=== PATIENT | male | born 1945 | race Caucasian/White ===

== ENCOUNTER 2019-10-24 07:30 | Inpatient (IN) ==
[2019-10-17 11:09] LABS: Prothrombin Time 13.3 sec (11.9-14.5)
[2019-10-17 11:13] LABS: Blood Urea Nitrogen 15 mg/dl (8-23); Calcium 9.6 mg/dl (8.6-10.4); Carbon Dioxide 27 mmol/L (22-30); Chloride 104 mmol/L (96-108); Glomerular Filtration Rate 86; Glucose 111 mg/dL (70-105)
[2019-10-17 11:17] LABS: Basophils # (Auto) 0 K/mcL (0.0-0.3); Basophils % (Auto) 0.6 % (0.0-2.0); Eosinophils # (Auto) 0.3 K/mcL (0.0-0.7); Granulocytes % (Auto) 59.7 % (38.0-78.0); Hematocrit 41.2 % (41.0-55.0); Hemoglobin 14.8 g/dL (13.5-16.5); Lymphocytes # (Auto) 1.4 K/mcL (1.5-4.8); Mean Cell Volume 87.9 fL (80.0-100.0); Mean Corpuscular HGB Conc 35.8 g/dL (31.0-36.0); Monocytes # (Auto) 0.4 K/mcL (0.1-0.9); Monocytes % (Auto) 7.7 % (1.0-12.0); Platelet Count 203 K/mcL (140-440); RBC 4.69 M/mcL (4.50-5.90); Red Cell Distribution Width 12.7 % (11.5-14.5); WBC 5.3 K/mcL (4.5-11.0)
[2019-10-17 11:51] LABS: Appearance,Urine CLEAR; Bacteria,Urine 0 /hpf (0); Bilirubin,Urine NEG (NEG); Color,Urine YELLOW; Culture Indicated,Urine NO; Glucose,Urine (UA) NEGATIVE (NEG); Ketones,Urine NEG (NEG); Leukocyte Esterase,Urine NEG /uL (NEG); Mucus,Urine FEW /hpf (0); Nitrate,Urine NEG (NEG); Protein,Urine NEG (NEG); Specific Gravity,Urine 1.023 (1.000-1.035); Urine Blood 0.03 mg/dL (<0.03); Urine RBC 2 /hpf (0-1); Urine Squamous Epithelial Cell 0 /hpf (0-4); Urine WBC 3 /hpf (0-4); Urobilinogen,Urine NEG (NEG)
[~2019-10-24 07:30] MED LIST: 0.9 % SODIUM CHLORIDE 9 ML, KETOROLAC 30 MG, ROPIVACAINE HCL/PF 49.5 ML, EPINEPHrine 0.... IJ SCH; ACETAMINOPHEN 500 MG TABLET PO SCH; CELECOXIB 200 MG CAPSULE PO SCH; IPRATROPIUM/ALBUTEROL 3 ML AMPUL.NEB NEB PRN; PREGABALIN 75 MG CAPSULE PO SCH; SCOPOLAMINE 1 PATCH PATCH TOPICAL PRN; ceFAZolin 2 GM in DEXTROSE 5% IN WATER 50 ML IV SCH; oxyCODONE 10 MG TAB.ER.12H PO SCH
[2019-10-31] MEDS ORDERED: ceFAZolin 2 GM in DEXTROSE 5% IN WATER 50 ML IV SCH (06:00)
[2019-10-31] MEDS ORDERED: oxyCODONE 10 MG TAB.ER.12H PO SCH (06:00)
[2019-10-31] MEDS ORDERED: PREGABALIN 75 MG CAPSULE PO SCH (06:00)
[2019-10-31] MEDS ORDERED: CELECOXIB 200 MG CAPSULE PO SCH (06:00)
[2019-10-31] MEDS ORDERED: 0.9 % SODIUM CHLORIDE 9 ML, KETOROLAC 30 MG, ROPIVACAINE HCL/PF 49.5 ML, EPINEPHrine 0.... IJ SCH (06:00)
[2019-10-31] MEDS ORDERED: ACETAMINOPHEN 500 MG TABLET PO SCH (06:00)
[2019-10-31] MEDS ORDERED: GLYCOPYRROLATE 0.2 MG/ML VIAL IV ONE (13:35)
[2019-10-31] MEDS ORDERED: PROPOFOL 200 MG/20 ML VIAL IV ONE (13:35)
[2019-10-31] MEDS ORDERED: LIDOCAINE HCL/PF 100 MG/5 ML SYRINGE IV ONE (13:35)
[2019-10-31] MEDS ORDERED: ONDANSETRON 4 MG/2 ML VIAL IV ONE (13:35)
[2019-10-31] MEDS ORDERED: ROPIVACAINE HCL/PF 20 ML VIAL IJ ONE (13:35)
[2019-10-31] MEDS ORDERED: DEXAMETHASONE 10 MG/ML VIAL IV ONE (13:35)
[2019-10-31] MEDS ORDERED: ePHEDrine 50 MG/ML AMPUL IV ONE (13:35)
[2019-10-31] MEDS ORDERED: KETAMINE 100 MG/ML ML IV ONE (13:35)
[2019-10-31] MEDS ORDERED: PHENYLEPHRINE 10 MG/ML VIAL IV ONE (13:35)
[2019-10-31] MEDS ORDERED: TRANEXAMIC ACID 1,000 MG/10 ML VIAL IV ONE (13:35)
[2019-10-31] MEDS ORDERED: GENTAMICIN SULFATE 800 MG/20 ML VIAL IR ONE (13:56)
[2019-10-31] MEDS ORDERED: BENZOCAINE/MENTHOL 1 LOZENGE PO PRN ×2 (14:45→15:02)
[2019-10-31] MEDS ORDERED: NALOXONE HCL 0.4 MG/ML VIAL IV PRN (14:45)
[2019-10-31] MEDS ORDERED: ONDANSETRON 4 MG/2 ML VIAL IV PRN ×2 (14:45→15:02)
[2019-10-31] MEDS ORDERED: diphenhydrAMINE 50 MG/ML VIAL IV PRN (14:45)
[2019-10-31] MEDS ORDERED: PROMETHAZINE 25 MG/ML VIAL IV PRN (14:45)
[2019-10-31] MEDS ORDERED: MEPERIDINE 25 MG/ML SYRINGE IV PRN (14:45)
[2019-10-31] MEDS ORDERED: LACTATED RINGERS 1,000 ML IV SCH (14:45)
[2019-10-31] MEDS ORDERED: IPRATROPIUM/ALBUTEROL 3 ML AMPUL.NEB NEB PRN (14:45)
[2019-10-31] MEDS ORDERED: LACTATED RINGERS 250 ML IV PRN (14:45)
[2019-10-31] MEDS ORDERED: TRANEXAMIC ACID 1,000 MG/10 ML VIAL IV SCH (15:02)
[2019-10-31] MEDS ORDERED: MAGNESIUM HYDROXIDE 30 ML ORAL.SUSP PO PRN (15:02)
[2019-10-31] MEDS ORDERED: HYDROmorphone 2 MG/ML VIAL IV PRN (15:02)
[2019-10-31] MEDS ORDERED: ACETAMINOPHEN 325 MG TABLET PO PRN (15:02)
[2019-10-31] MEDS ORDERED: BISACODYL 10 MG SUPP.RECT PR PRN (15:02)
[2019-10-31] MEDS ORDERED: FLEETS ADULT ENEMA PR PRN (15:02)
[2019-10-31] MEDS ORDERED: POLYETHYLENE GLYCOL 3350 17 GM PACKET PO PRN (15:02)
--- NOTE | 2019-10-31 15:07 | Brief Operative Note ---
Date of procedure: 10/31/19 Pre-op diagnosis: right knee djd severe Post-op diagnosis: same Procedure: right total knee with bryce robot Grafts/Implants: Yes Anesthesia: GETA Complications Description: 10/31/19 15:07 none Surgeon: Ashok Dowd Cloth Stock Sorter: John Singleton Estimated blood loss (cc): 50 Tourniquet Time (Minutes): 55 Specimens Removed/Pathology: none sent Condition: stable Disposition: PACU
--- NOTE | 2019-10-31 15:25 | Operative Note ---
DATE OF OPERATION: 10/31/2019 PREOPERATIVE DIAGNOSIS: Right knee degenerative arthritis. POSTOPERATIVE DIAGNOSIS: Right knee degenerative arthritis. PROCEDURE: Right total knee arthroplasty using the Connor robot. SURGEON: Ashok Dowd M.D. INDIAN BLANKET WEAVER: John Singleton PA-C. The PA's assistance was required for the safe and efficient completion of the entire case. This provider's expertise and technical skill were required throughout the case. The PA assisted with preoperative coordination, intraoperative retraction, wound closure, dressing and splint application, as well as postoperative documentation and care coordination. ANESTHESIA: General LMA anesthesia. COMPLICATIONS: None. TOURNIQUET TIME: Approximately 55 minutes. DESCRIPTION OF PROCEDURE: The patient was brought to the operating room and put to sleep with general LMA anesthesia. Once asleep, the patient had the right leg sterilely prepped and draped in the usual sterile fashion. A timeout was performed. We confirmed this as the operative site by initials, consent form, and x-rays. Once all matched, we then proceeded with the case. Preop antibiotics and tranexamic acid had been given. We made a midline incision through the Ioban that protected the skin from the operative field. Once done, we were able to expose the joint with a midvastus approach. Once we were able to do this, we were then able to see the severe arthritis in all the compartments. We proceeded with a total knee arthroplasty. We brought in the Connor robot. We placed two pins above and below the knee. We registered the center of hip rotation and the medial and lateral malleoli. Intraarticular pins were registered, and thirty points of the femur and the tibia were registered. We then balanced the knee at 90 degrees and 15 degrees, both medial and laterally. Once we were able to do this, we were able to then reposition the implants to balance the knee throughout the full arc of motion. Once done, we were then able to bring the robot in and remove the bony fragments as predetermined and balanced. Once done, we then were able to trial the components after removing the spurs. It was a little tight laterally with a slight flexion contracture which we then released some of the capsule and lateral collateral ligament subperiosteally laterally. This helped to make the knee perfectly straight. When the knee started, it had 1 degree of valgus and 2 degrees of flexion contracture. We were able to bring the knee to 2 degrees of varus and 0 degrees extension. Once we were able to confirm this, then we cemented into place the tibial baseplate, as well as the femoral component. We were able to use a 9 mm poly liner with a deep dish for extra stability. These fit very nicely. We then prepared the patella and cemented into place a 36 mm patellar button. A small chamfer cut was made laterally and we cemented all the components into place. Excess cement was removed. We then kept the knee at 45 degrees and deflated the tourniquet at 55 minutes. Any bleeding that occurred, we did use the Bovie to control any major bleeding. There was not any significant bleeding, however. Once done, we then closed the midvastus capsule with #2 self-locking suture. We then used the skin with 2-0 Vicryl and adhesive closure. The patient tolerated this well. There was no complication. Sterile bandage was applied. Tourniquet was deflated at approximately 55 minutes. RBH:dameon Job ID: [id number] Doc ID: [id number] Ashok Dowd MD
[2019-10-31] MEDS: fentaNYL 100 MCG/2 ML VIAL IV PRN ×4 (15:57→16:06)
--- NOTE | 2019-10-31 16:06 | XRay Report ---
CLINICAL INFORMATION: Postsurgical follow-up TECHNIQUE: AP and crosstable lateral right knee COMPARISON: None. FINDINGS: Status post right total knee arthroplasty. Prosthetic components are in anatomic positions. There is postsurgical soft tissue gas IMPRESSION: Status post right total knee arthroplasty Interpreted and Authenticated by: Adelfo Holman 10/31/19
[2019-10-31] MEDS: LACTATED RINGERS 1,000 ML IV SCH (16:47)
--- NOTE | 2019-10-31 16:50 | Discharge Summary ---
Ortho Discharge - TKA - Patient Instructions Diet: Regular Diet Activity: activity as tolerated, weight bearing as tolerated Total Knee Protocol: For Total Knee: Start ROM VONINE with stationary bike or rocking chair. Work on gaining full extension of knee. Posterior dislocation precautions provided. Hip abductor strengthening and gait training instructions provided. Apply Cryocuff as instructed. Dressing Care: May shower in 2 days - Follow Up Plan Follow Up Appointments: John Singleton PA-C [Physician Dust Box Tender] - 11/15/19 9:00 am Disposition: Home, Self-Care Prognosis: Good Rehab Potential: Good I certify that the patient requires SNF services: No Overall status at discharge: patient is progressing back to baseline - Orders For Discharge Prescriptions: Docusate Sodium [Colace] 100 mg PO BID #60 cap Transmission Status: Pending to [facility] Aspirin [Ecotrin] 325 mg PO BID #60 tab.ec Transmission Status: Pending to [facility] oxyCODONE/APAP [Percocet 5-325 mg] 1 - 2 tab PO Q4HP PRN #75 tab PRN Reason: Pain Level 3-6 Prescription Printed
[2019-10-31] MEDS: KETOROLAC 15 MG/ML VIAL IV SCH ×2 (18:11→23:49)
[2019-10-31] MEDS: oxyCODONE/APAP 5/325MG TABLET PO PRN ×2 (18:13→23:50)
[2019-10-31] MEDS: ceFAZolin 1 GM VIAL IV SCH (20:41)
[2019-10-31] MEDS: ASPIRIN 325 MG ENTERIC COATED TABLET PO SCH (20:42)
[2019-10-31] MEDS: DOCUSATE SODIUM 100 MG CAPSULE PO SCH (20:43)
[2019-10-31] MEDS: 0.9 % SODIUM CHLORIDE 10 ML SYRINGE IV SCH (20:46)
[2019-10-31] MEDS ORDERED: SENNOSIDES 1 TABLET PO SCH (21:00)
[2019-10-31] MEDS ORDERED: TEMAZEPAM 15 MG CAPSULE PO PRN (21:00)
[2019-11-01] MEDS: LACTATED RINGERS 1,000 ML IV SCH (02:59)
[2019-11-01] MEDS: ceFAZolin 1 GM VIAL IV SCH (04:33)
[2019-11-01] MEDS: oxyCODONE/APAP 5/325MG TABLET PO PRN (04:53)
[2019-11-01] MEDS: KETOROLAC 15 MG/ML VIAL IV SCH ×2 (06:09→11:50)
[2019-11-01] MEDS: 0.9 % SODIUM CHLORIDE 10 ML SYRINGE IV SCH (06:10)
--- NOTE | 2019-11-01 07:44 | Orthopedic Progress Note ---
Subjective Patient information: Note initiated : 11/01/19 at 7:43 am Service Date, if different from initiated Date: [] Patient: Alvin Rooney 74 y/o M admitted on 10/31/19 for Right Total Knee Arthroplasty Connor. Chief Complaint: [Pt is stable this morning on post operative day 1 without any significant concerns or complaints. Patients vital signs have remained stable. Patients dressing is dry and is grossly intact from a neurovascular and motor standpoint. Patients 10 point ROS is otherwise negative. ] Objective Vital signs: Vital Signs Temp Pulse Resp BP BP Pulse Ox 11/01/19 07:22 18 98 11/01/19 02:59 97.5 F 91 H 12 122/74 95 10/31/19 23:47 98.1 F 78 12 131/76 94 10/31/19 19:17 97.8 F 88 12 125/69 95 10/31/19 17:47 64 134/77 98 10/31/19 17:16 77 149/86 100 10/31/19 17:01 84 146/77 100 10/31/19 16:46 74 135/84 100 10/31/19 16:32 76 150/80 100 10/31/19 16:20 78 14 100 10/31/19 16:10 96.9 F L 77 13 136/85 100 10/31/19 15:55 97.0 F 82 14 146/71 100 10/31/19 15:40 97.1 F 95 H 26 H 138/64 98 10/31/19 15:35 87 16 139/77 99 10/31/19 15:30 89 12 145/78 100 10/31/19 15:25 111 H 20 146/84 100 10/31/19 15:23 97.7 F 114 H 14 160/101 100 10/31/19 10:15 83 18 99 10/31/19 10:00 97.6 F 83 18 139/82 99 Intake and Output 10/31/19 11/01/19 11/01/19 21:59 05:59 13:59 Intake Total 3230 1790 Output Total 950 1050 Balance 2280 740 Intake: IV 1000 Lactated Ringers 1,000 ml @ 100 1000 mls/hr IV .Q10H [facility] Rx#: [id number] Oral 1280 790 IV - Manual Only 1950 Output: Urine Catheter Amount 900 1050 Straight 900 1050 Estimated Blood Loss 50 Other: Meal Dinner Nourishment/Supplement Percent of Meal Consumed 100% 100% Feeding Ability Independent Assist with Tray Set Up Urine Appearance Clear Straight Clear Clear Urine Color Pale Straight Pale Bright Yellow Urine Odor Straight Normal Weight 206 lb 8 oz Intake & Output: Intake & Output 10/31/19 11/01/19 11/01/19 21:59 05:59 13:59 Intake Total 3230 1790 Output Total 950 1050 Balance 2280 740 Weight 206 lb 8 oz Intake: IV 1000 Lactated Ringers 1,000 ml @ 100 1000 mls/hr IV .Q10H [facility] Rx#: [id number] Oral 1280 790 IV - Manual Only 1950 Output: Urine Catheter Amount 900 1050 Straight 900 1050 Estimated Blood Loss 50 Other: Meal Dinner Nourishment/Supplement Percent of Meal Consumed 100% 100% Feeding Ability Independent Assist with Tray Set Up Urine Appearance Clear Straight Clear Clear Urine Color Pale Straight Pale Bright Yellow Urine Odor Straight Normal Incision: Yes healing Incision clean and dry: Yes Dressing: Yes clean Weight bearing status: full Neurological exam IM: Yes motor sensory intact, Yes neurovascular intact Extremities exam IM: Yes neurovascular intact - Labs CBC & BMP: 11/01/19 04:10 10/17/19 09:32 Labs: Orthopedic Labs 10/17/19 09:32 PT 13.3 INR 1.0 APTT 30 11/01/19 10/17/19 04:10 09:33 Hgb 14.8 Hct 39.6 L 41.2 Assessment and Plan (1) Hx of total knee arthroplasty The patient has been educated regarding dressing care, Physical Therapy recommendations, home exercises, restrictions, and follow up appointments. The patient has had all necessary DME prescribed. The patient has remained relatively stable during their hospital course. Leave Dermabond patch intact until followup Status: Acute
[2019-11-01] MEDS: ASPIRIN 325 MG ENTERIC COATED TABLET PO SCH (08:07)
[2019-11-01] MEDS: DOCUSATE SODIUM 100 MG CAPSULE PO SCH (08:07)
== END 2019-11-01 14:31 | disposition home or self-care (01) | DRG 470 ==
LOC: MEDSUR 10-31 09:57
PROVIDERS: ADMIT Orthopaedic Surgery; ATTEND Orthopaedic Surgery

== ENCOUNTER 2020-07-09 08:02 | Inpatient (IN) ==
[2020-07-03 12:54] LABS: Appearance,Urine CLEAR; Bacteria,Urine 0 /hpf (0); Bilirubin,Urine NEG (NEG); Color,Urine YELLOW; Culture Indicated,Urine YES; Glucose,Urine (UA) NEGATIVE (NEG); Ketones,Urine NEG (NEG); Leukocyte Esterase,Urine 250 /uL (NEG); Mucus,Urine FEW /hpf (0); Nitrate,Urine NEG (NEG); Protein,Urine NEG (NEG); Specific Gravity,Urine 1.024 (1.000-1.035); Urine Blood 0.03 mg/dL (<0.03); Urine RBC 1 /hpf (0-1); Urine Squamous Epithelial Cell 0 /hpf (0-4); Urine WBC 13 /hpf (0-4)
[2020-07-03 14:01] LABS: Basophils # (Auto) 0.05 K/mcL (0.00-0.30); Basophils % (Auto) 0.7 % (0.0-2.0); Eosinophils # (Auto) 0.17 K/mcL (0.00-0.70); Eosinophils % (Auto) 2.4 % (0.0-7.0); Granulocytes % (Auto) 69.6 % (38.0-78.0); Hematocrit 41.7 % (40.1-51.0); Hemoglobin 14.3 g/dL (13.7-17.5); Lymphocytes # (Auto) 1.35 K/mcL (1.50-4.80); Lymphocytes % (Auto) 19.3 % (15.5-49.0); Mean Cell Volume 93.9 fL (80.0-100.0); Mean Corpuscular HGB Conc 34.3 g/dL (31.0-36.0); Mean Platelet Volume 10.2 fL (7.4-10.4); Monocytes # (Auto) 0.56 K/mcL (0.10-0.90); Platelet Count 234 K/mcL (140-440); RBC 4.44 M/mcL (4.63-6.08); Red Cell Distribution Width 13.7 % (11.5-14.5)
[2020-07-03 14:31] LABS: INR 0.9 (0.9-1.1)
[2020-07-03 15:24] LABS: Blood Urea Nitrogen 19 mg/dl (8-23); Calcium 8.9 mg/dl (8.6-10.4); Carbon Dioxide 22 mmol/L (22-30); Chloride 103 mmol/L (96-108); Glomerular Filtration Rate 85; Glucose 179 mg/dL (70-105)
[2020-07-04 10:06] LABS: Hemoglobin A1C 5.9 % HGB (4.0-6.0)
[~2020-07-09 08:02] MED LIST changes: -0.9 % SODIUM CHLORIDE 9 ML, KETOROLAC 30 MG, ROPIVACAINE HCL/PF 49.5 ML, EPINEPHrine 0.... IJ SCH; -CELECOXIB 200 MG CAPSULE PO SCH; -PREGABALIN 75 MG CAPSULE PO SCH
[2020-07-09] MEDS: PREGABALIN 75 MG CAPSULE PO SCH ×2 (09:25→09:31)
[2020-07-09] MEDS: CELECOXIB 200 MG CAPSULE PO SCH ×2 (09:25→09:32)
[2020-07-09 10:03] LABS: Appearance,Urine CLEAR; Bacteria,Urine 0 /hpf (0); Bilirubin,Urine NEG (NEG); Color,Urine YELLOW; Culture Indicated,Urine NO; Glucose,Urine (UA) NEGATIVE (NEG); Ketones,Urine NEG (NEG); Leukocyte Esterase,Urine NEG /uL (NEG); Mucus,Urine MOD /hpf (0); Nitrate,Urine NEG (NEG); Protein,Urine NEG (NEG); Specific Gravity,Urine 1.023 (1.000-1.035); Urine Blood 0.2 mg/dL (<0.03); Urine RBC 22 /hpf (0-1); Urine Squamous Epithelial Cell 0 /hpf (0-4); Urine WBC 2 /hpf (0-4); Urobilinogen,Urine NEG (NEG)
[2020-07-09] MEDS ORDERED: 0.9 % SODIUM CHLORIDE 9 ML, KETOROLAC 30 MG, ROPIVACAINE HCL/PF 49.5 ML, EPINEPHrine 0.... IJ ONE (10:28)
[2020-07-09] MEDS ORDERED: ONDANSETRON 4 MG/2 ML VIAL IV ONE (10:51)
[2020-07-09] MEDS ORDERED: fentaNYL 100 MCG/2 ML VIAL IV ONE (10:51)
[2020-07-09] MEDS ORDERED: TRANEXAMIC ACID 1,000 MG/10 ML VIAL IV ONE ×2 (10:51→12:24)
[2020-07-09] MEDS ORDERED: KETAMINE 100 MG/ML ML IV ONE (10:51)
[2020-07-09] MEDS ORDERED: PROPOFOL 200 MG/20 ML VIAL IV ONE (10:51)
[2020-07-09] MEDS ORDERED: ePHEDrine 50 MG/ML AMPUL IV ONE (10:51)
[2020-07-09] MEDS ORDERED: HYDROmorphone 1 MG/ML SYRINGE IV ONE (10:51)
[2020-07-09] MEDS ORDERED: SUCCINYLCHOLINE 20 MG/ML ML IV ONE (10:51)
[2020-07-09] MEDS ORDERED: LIDOCAINE HCL/PF 100 MG/5 ML SYRINGE IV ONE (10:51)
[2020-07-09] MEDS ORDERED: diphenhydrAMINE 50 MG/ML VIAL IV PRN (12:02)
[2020-07-09] MEDS ORDERED: HYDROmorphone 0.5 MG/0.5 ML SYRINGE IV PRN (12:02)
[2020-07-09] MEDS ORDERED: PROMETHAZINE 25 MG/ML VIAL IV PRN (12:02)
[2020-07-09] MEDS ORDERED: METHOCARBAMOL 1,000 MG/10 ML VIAL IV PRN (12:02)
[2020-07-09] MEDS ORDERED: NALOXONE HCL 0.4 MG/ML VIAL IV PRN (12:02)
[2020-07-09] MEDS ORDERED: LACTATED RINGERS 250 ML IV PRN (12:02)
[2020-07-09] MEDS ORDERED: IPRATROPIUM/ALBUTEROL 3 ML AMPUL.NEB NEB PRN (12:02)
[2020-07-09] MEDS ORDERED: ONDANSETRON 4 MG/2 ML VIAL IV PRN ×2 (12:02→12:24)
[2020-07-09] MEDS ORDERED: GENTAMICIN SULFATE 800 MG/20 ML VIAL IR ONE (12:09)
[2020-07-09] MEDS ORDERED: LACTATED RINGERS 1,000 ML IV SCH (12:15)
--- NOTE | 2020-07-09 12:19 | Discharge Plan ---
Discharge Instructions - TSA Patient Instructions Total Shoulder Protocol: Leave immobilizer in place except for bathing and ROM. Abduction pillow. Continue to wear sling until seen by physician. Codman Pendulum : These exercises use momentum produced by your body to move your shoulder joint. Bend your knees and shift your weight to your front leg, then back, allowing your arm to swing in the same directions. Using the same technique, alternately shift your weight between your right and left legs, allowing your arm to swing from side to side. These exercises are also performed in counterclockwise and clockwise circular motions. Typically these exercises are performed several times per day, for a set number repetitions or minutes, such as 20 times in a row or 5 minutes at a time. Discharge Plan Patient/Caregiver Discharge Instructions Activity: as per physical therapy Diet: Regular Diet Prescriptions: New hydrocodone-acetaminophen 10-325 mg Tablet 1 - 2 tab PO Q4H PRN (Reason: Pain) Qty: 90 RF: 0 docusate sodium 100 mg capsule 100 mg PO BID Qty: 60 RF: 0 Other Ambulatory Orders: Brace/Splint (ONCE) Location: None Selected Ordered By: John Singleton Physical Therapy [place] - TSA (Routine) Location: None Selected Ordered By: John Singleton Follow Up Plan Follow up with: John Singleton PA-C [Physician Tube Balancer] - 07/24/20 8:50 am Patient Disposition: Home, Self-Care Prognosis: Good Rehab Potential: Good I certify that the patient requires SNF services: No Overall status at discharge: patient is progressing back to baseline Discharge Orders: Discharge Order (Routine); Ordered 07/10/20 Ordered By: John Singleton
[2020-07-09] MEDS ORDERED: POLYETHYLENE GLYCOL 3350 17 GM PACKET PO PRN (12:24)
[2020-07-09] MEDS ORDERED: TEMAZEPAM 15 MG CAPSULE PO PRN (12:24)
[2020-07-09] MEDS ORDERED: ACETAMINOPHEN 325 MG TABLET PO PRN (12:24)
[2020-07-09] MEDS ORDERED: BISACODYL 10 MG SUPP.RECT PR PRN (12:24)
[2020-07-09] MEDS ORDERED: HYDROmorphone 1 MG/ML SYRINGE IV PRN (12:24)
[2020-07-09] MEDS ORDERED: MAGNESIUM HYDROXIDE 30 ML ORAL.SUSP PO PRN (12:24)
[2020-07-09] MEDS ORDERED: FLEETS ADULT ENEMA PR PRN (12:24)
[2020-07-09] MEDS ORDERED: BENZOCAINE/MENTHOL 1 LOZENGE PO PRN (12:24)
[2020-07-09] MEDS ORDERED: KETOROLAC 15 MG/ML VIAL IV PRN (12:24)
[2020-07-09] MEDS ORDERED: oxyCODONE/APAP 5/325MG TABLET PO PRN (12:24)
[2020-07-09] MEDS: fentaNYL 100 MCG/2 ML VIAL IV PRN ×5 (12:39→13:12)
--- NOTE | 2020-07-09 12:57 | XRay Report ---
INDICATION: Post-Op Total Shoulder TECHNIQUE: AP and Y-view of the left shoulder COMPARISON: None. FINDINGS: Status post left reverse shoulder arthroplasty. Alignment is anatomic IMPRESSION: Postsurgical left shoulder as above Interpreted and Authenticated by: Adelfo Holman 07/09/20
--- NOTE | 2020-07-09 14:03 | Brief Operative Note ---
Brief Operative Note Date of procedure: 07/09/20 Pre-op diagnosis: left shoulder djd and torn bicep Post-op diagnosis: same Procedure: left reverse tsa and bicep tenodesis Grafts/Implants: Yes Anesthesia: GETA Complications: none Surgeon: Ashok Dowd Crystalizer Operator: John Singleton Estimated blood loss (cc): 26 Tourniquet Time (Minutes): 50 Specimens Removed/Pathology: none sent Condition: stable Disposition: PACU
[2020-07-09] MEDS: 0.9 % SODIUM CHLORIDE 10 ML SYRINGE IV SCH ×2 (14:16→20:43)
[2020-07-09] MEDS: LACTATED RINGERS 1,000 ML IV SCH (14:52)
[2020-07-09] MEDS: ceFAZolin 1 GM VIAL IV SCH (18:22)
[2020-07-09] MEDS: DOCUSATE SODIUM 100 MG CAPSULE PO SCH (20:43)
[2020-07-09] MEDS ORDERED: SENNOSIDES 1 TABLET PO SCH (21:00)
[2020-07-10] MEDS: LACTATED RINGERS 1,000 ML IV SCH (01:28)
[2020-07-10] MEDS: ceFAZolin 1 GM VIAL IV SCH (02:20)
[2020-07-10] MEDS: 0.9 % SODIUM CHLORIDE 10 ML SYRINGE IV SCH (06:07)
--- NOTE | 2020-07-10 07:39 | Orthopedic Progress Note ---
SUBJECTIVE Subjective Patient information: Note initiated : 07/10/20 at 7:38 am Service Date, if different from initiated Date: [] Patient: Alvin Rooney 74 y/o M admitted on 07/09/20 for Left Total Shoulder Arthroplasty Reverse with. Chief Complaint: [Pt is stable this morning on post operative day 1 without any significant concerns or complaints. Patients vital signs have remained stable. Patients dressing is dry and is grossly intact from a neurovascular and motor standpoint. Patients 10 point ROS is otherwise negative. ] Constitutional Vitals: Vital Signs Temp Pulse Resp BP Pulse Ox 98.1 F 100 H 16 133/81 97 07/10/20 04:31 07/10/20 04:31 07/10/20 04:31 07/10/20 04:31 07/10/20 04:31 Period Temp Pulse Resp BP Sys/Richardson Pulse Ox Last 24 Hr 96.7 F-98.3 F 53-100 9-21 115-155/57-84 78-100 Intake and Output 07/09/20 07/10/20 07/10/20 21:59 05:59 13:59 Intake Total 680 1800 Output Total 800 1000 Balance -120 800 Weight 198 lb 11.2 oz Intake & Output: Intake & Output 07/09/20 07/10/20 07/10/20 21:59 05:59 13:59 Intake Total 680 1800 Output Total 800 1000 Balance -120 800 Weight 198 lb 11.2 oz Intake: IV 1000 Lactated Ringers 1,000 ml @ 100 1000 mls/hr IV .Q10H [facility] Rx#: [id number] Oral 680 800 Output: Void Amount 1000 Emesis 800 Other: Meal Dinner Percent of Meal Consumed 75% Feeding Ability Independent Urine Appearance Clear Urine Color Dark Yellow Urine Odor Normal Extremities Exam Extremities exam: Present full ROM, normal capillary refill and neurovascular intact OBJ DATA Labs CBC & Chem 7: 07/03/20 10:59 07/03/20 10:58 Labs: Abnormal Lab Results 07/09/20 08:50 Urine Occult Blood 0.2 A Urine RBC 22 H Meds: Medications Acetaminophen (Tylenol) 650 mg PO Q6HP PRN PRN Reason: PAIN/FEVER > 101 Last Admin: 07/10/20 06:31 Dose: 650 mg Documented by: Bisacodyl (Dulcolax) 10 mg TN Q2-3DAYS PRN PRN Reason: Constipation Docusate Sodium (Colace) 100 mg PO BID [facility] Last Admin: 07/09/20 20:43 Dose: 100 mg Documented by: Hydromorphone HCl (Dilaudid) 0 mg IV Q2HP PRN; Protocol PRN Reason: Per Pain Protocol Last Admin: 07/09/20 18:34 Dose: 0.5 mg Documented by: Ketorolac Tromethamine (Toradol) 15 mg IV Q6HP PRN PRN Reason: Pain Stop: 07/11/20 12:24 Last Admin: 07/09/20 18:36 Dose: 15 mg Documented by: Magnesium Hydroxide (Milk Of Magnesia) 30 ml PO BIDP PRN PRN Reason: Constipation Morphine Sulfate (Morphine) 0 mg IV Q1HP PRN PRN Reason: PAIN LEVEL > 6 Ondansetron HCl (Zofran) 4 mg IV Q4HP PRN PRN Reason: Nausea And Vomiting Last Admin: 07/09/20 19:54 Dose: 4 mg Documented by: Oxycodone/Acetaminophen (Percocet 5-325 Mg) 0 tab PO Q4HP PRN PRN Reason: PAIN LEVEL 3-6 Last Admin: 07/09/20 20:52 Dose: 2 tab Documented by: Polyethylene Glycol (Miralax) 17 gm PO DAILYP PRN PRN Reason: Constipation Senna (Senokot) 2 tab PO HS [facility] Last Admin: 07/09/20 20:43 Dose: 2 tab Documented by: Sodium Biphosphate/Sodium Phosphate (Fleets Adult) 1 dose TN Q3-4DAYS PRN PRN Reason: Constipation Sodium Chloride (Saline Flush) 10 ml IV Q8 [facility] Last Admin: 07/10/20 06:07 Dose: Not Given Documented by: Temazepam (Restoril) 15 mg PO HSP PRN PRN Reason: Insomnia Last Admin: 07/09/20 20:43 Dose: 15 mg Documented by: Throat Lozenges (Cepacol) 1 lozenge PO PRN PRN PRN Reason: Sore Throat Last Admin: 07/10/20 06:31 Dose: 1 lozenge Documented by: A/P Narrative A/P Narrative: The patient has been educated regarding dressing care, Physical Therapy recommendations, home exercises, restrictions, and follow up appointments. The patient has had all necessary DME prescribed. The patient has remained relatively stable during their hospital course. Time Spent With Patient Time: Total time spent is greater than 50% in coordination of care (as documented) at patient's floor/unit and/or counseling patient:
[2020-07-10] MEDS: DOCUSATE SODIUM 100 MG CAPSULE PO SCH (09:48)
--- NOTE | 2020-07-24 10:03 | Operative Note ---
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 PROCEDURE: Left reverse total shoulder and biceps tenodesis. SURGEON: Ashok Dowd M.D. COMPASS OPERATOR: John Singleton PA-C. The PA's assistance was required for the safe and efficient completion of the entire case. This provider's expertise and technical skill were required throughout the case. The PA assisted with preoperative coordination, intraoperative retraction, wound closure, dressing and splint application, as well as postoperative documentation and care coordination. ANESTHESIA: General LMA anesthesia. COMPLICATIONS: None. IMPLANTS PLACED Aayush reverse total shoulder. ESTIMATED BLOOD LOSS: 26 mL. TOURNIQUET TIME: None. CONDITION: Stable. DISPOSITION: PACU. DESCRIPTION OF PROCEDURE: The patient was brought to the operating room and put to sleep with general LMA anesthesia. Once asleep, the patient had the left shoulder sterilely prepped and draped in the usual sterile fashion. Once this was done, we then had a timeout confirming the operative side as a left shoulder. Ioban was placed over the skin. We confirmed the operative site by initials, consent form, and x-rays. A deltopectoral approach was performed, releasing the subscap. We entered the shoulder joint revealing a torn supraspinatus. Some of the infraspinatus had a SLAP lesion. At this point, we released the remnants of the bicep tendon which was then harvested and placed as a repair to the pec major. Roughing the bone, we placed two [id number] stitches into the bicep tendon. We proceeded with the remainder of the case. Ethibond stitches were placed in the subscap. We dislocated the humerus and made our neck cut at 135 degrees with 20 degrees of retroversion. Once this was done, we subluxed the head posteriorly and inferiorly. We then performed a 360-degree capsular release of the glenoid, removing the remnants of the labrum. Once done, we then reamed up to the size of 40. We placed a metaglene with four screws. A central 6.5 screw and three additional screws, size of screws per nurse's note. At this point, we then placed the glenosphere which was a 36 mm glenosphere with 2 mm offset and 2 mm of eccentricity. This was tapped onto the metaglene. We then prepared the humerus. The head was then broached up to the appropriate size stem. We trialed the components with a neutral, which is 4 mm and a 6 mm. We did use the 6 mm. We irrigated thoroughly and placed a small amount of cement in the canal because of the poor bone quality. Proximally it was a porous ingrowth surface. This was tapped into place until stable. We then placed a corresponding 36 mm poly liner and this was reduced. Excellent stability through the full arc of motion. We then irrigated thoroughly. We closed the deltopectoral interval with Stratafix. We closed the skin with Stratafix and adhesive closure. A DonJoy sling was fitted and given to the patient. The patient tolerated this well. No complications. Blood loss was about 26 mL. RBH:dameon Job ID: [id number] Doc ID: [id number] Ashok Dowd MD
== END 2020-07-10 11:05 | disposition home or self-care (01) | DRG 483 ==
LOC: MEDSUR 08:02
PROVIDERS: ADMIT Orthopaedic Surgery; ATTEND Orthopaedic Surgery